=== PATIENT | male | born 1995 | race Caucasian/White ===

== ENCOUNTER 2025-01-18 08:17 | Outpatient (CLI) | payer OTHER, SELFPAY | END 2025-01-18 08:18 | disposition home or self-care (01) | PROVIDERS: PCP Family Medicine; Visit Provider Family Medicine | DX: R10.33 Periumbilical pain (principal) | CPT/HCPCS: 80053; 83690; 85025 ==

== ENCOUNTER 2025-01-26 07:09 | Outpatient (CLI) | payer OTHER, SELFPAY | END 2025-01-26 07:10 | disposition home or self-care (01) | PROVIDERS: PCP Family Medicine; Visit Provider Family Medicine | DX: R10.9 Unspecified abdominal pain (principal); N50.812 Left testicular pain; L72.0 Epidermal cyst | CPT/HCPCS: 76700; 76870; 93976 ==